=== PATIENT | female | born 1965 | race Caucasian/White ===

== ENCOUNTER 2020-01-10 04:14 | Emergency (ER) | payer OTHER ==
[2020-01-10] MEDS ORDERED: NA CHLORIDE 0.9% 1,000 ML ONE (04:50)
[2020-01-10 05:09] LABS: Absolute Lymphocytes (CBC) 1.9 K/uL (0.7-4.9); Basophils % 1.1 % (0-1.3); Hematocrit 47.7 % (36.0-45.0); Lymphocytes % 31.6 % (15.3-44.8); MPV 10.1 fL (7.6-11.3); RBC Red Blood Cell Count 5.05 M/uL (3.86-4.86)
[2020-01-10 05:10] LABS: Protime INR 1.07
[2020-01-10] MEDS ORDERED: LORAZEPAM 1 MG TABLET ONE (05:22)
[2020-01-10] MEDS ORDERED: lisinopriL 10 MG TAB ONE (05:23)
[2020-01-10 05:24] LABS: ALT/SGPT 27 U/L (12-78); AST/SGOT 13 U/L (15-37); Albumin 4.2 g/dL (3.4-5.0); Alkaline Phosphatase 71 U/L (45-117); BUN Blood Urea Nitrogen 11 mg/dL (7-18); Bicarbonate 24 mmol/L (21-32); Bilirubin Direct 0.1 mg/dL (0-0.2); Bilirubin Total 0.6 mg/dL (0.2-1.0); Glucose Level 115 mg/dL (74-106); Magnesium 2.2 mg/dL (1.8-2.4); Potassium 3.5 mmol/L (3.5-5.1); Protein, Total 7.8 g/dL (6.4-8.2); Sodium Level 140 mmol/L (136-145); Troponin (Emerg Dept Use Only) < 0.02 ng/mL (0.0-0.045)
--- NOTE | 2020-01-10 05:40 | EDPHYS ---
Physician Documentation [facility] Name: Adela Montenegro Age: 54 yrs Sex: Female : 1965 Arrival Date: 01/10/2020 Time: 04:15 Bed 17 Private MD: KARLA Physician Duncan Luis HPI: 01/09 04:42 This 54 yrs old Female presents to ER via Ambulatory with complaints of High geni Blood Pressure. 04:42 The patient has elevated blood pressure and discovered this at home. Onset: The geni symptoms/episode began/occurred today. Modifying factors: The symptoms are aggravated by activity, The symptoms are alleviated by remaining still. Associated signs and symptoms: The patient has no apparent associated signs or symptoms. Severity of symptoms: At its worst the blood pressure was mild, moderate, in the emergency department the blood pressure is unchanged. The patient has not experienced similar symptoms in the past. Historical: - Allergies: 06:08 No Known Allergies; sg - Home Meds: 04:27 carvedilol oral oral [Active]; sg 06:08 atorvastatin oral oral [Active]; Effexor Oral [Active]; sg - PMHx: 04:27 Hypertension; sg - PSHx: 04:27 Tonsillectomy; Left Knee; sg - Immunization history:: Adult Immunizations up to date. - Social history:: Smoking status: Patient denies any tobacco usage or history of. - Family history:: not pertinent. ROS: 04:42 Constitutional: Negative for fever, chills, and weight loss, Eyes: Negative for injury, geni pain, redness, and discharge, ENT: Negative for injury, pain, and discharge, Neck: Negative for injury, pain, and swelling, Cardiovascular: Negative for chest pain, palpitations, and edema, Respiratory: Negative for shortness of breath, cough, wheezing, and pleuritic chest pain, Abdomen/GI: Negative for abdominal pain, nausea, vomiting, diarrhea, and constipation, Back: Negative for injury and pain, : Negative for injury, bleeding, discharge, and swelling, MS/Extremity: Negative for injury and deformity, Skin: Negative for injury, rash, and discoloration, Neuro: Negative for headache, weakness, numbness, tingling, and seizure, Allergy/Immunology: Negative for hives, rash, and allergies, Endocrine: Negative for neck swelling, polydipsia, polyuria, polyphagia, and marked weight changes, Hematologic/Lymphatic: Negative for swollen nodes, abnormal bleeding, and unusual bruising. 04:42 Psych: Positive for anxiety. Exam: 04:42 Constitutional: This is a well developed, well nourished patient who is awake, alert, geni and in no acute distress. Head/Face: Normocephalic, atraumatic. Eyes: Pupils equal round and reactive to light, extra-ocular motions intact. Lids and lashes normal. Conjunctiva and sclera are non-icteric and not injected. Cornea within normal limits. Periorbital areas with no swelling, redness, or edema. ENT: Nares patent. No nasal discharge, no septal abnormalities noted. Tympanic membranes are normal and external auditory canals are clear. Oropharynx with no redness, swelling, or masses, exudates, or evidence of obstruction, uvula midline. Mucous membranes moist. Neck: Trachea midline, no thyromegaly or masses palpated, and no cervical lymphadenopathy. Supple, full range of motion without nuchal rigidity, or vertebral point tenderness. No Meningismus. Chest/axilla: Normal chest wall appearance and motion. Nontender with no deformity. No lesions are appreciated. Cardiovascular: Regular rate and rhythm with a normal S1 and S2. No gallops, murmurs, or rubs. Normal PMI, no JVD. No pulse deficits. Respiratory: Lungs have equal breath sounds bilaterally, clear to auscultation and percussion. No rales, rhonchi or wheezes noted. No increased work of breathing, no retractions or nasal flaring. Abdomen/GI: Soft, non-tender, with normal bowel sounds. No distension or tympany. No guarding or rebound. No evidence of tenderness throughout. Back: No spinal tenderness. No costovertebral tenderness. Full range of motion. Skin: Warm, dry with normal turgor. Normal color with no rashes, no lesions, and no evidence of cellulitis. MS/ Extremity: Pulses equal, no cyanosis. Neurovascular intact. Full, normal range of motion. Neuro: Awake and alert, GCS 15, oriented to person, place, time, and situation. Cranial nerves II-XII grossly intact. Motor strength 5/5 in all extremities. Sensory grossly intact. Cerebellar exam normal. Normal gait. Psych: Awake, alert, with orientation to person, place and time. Behavior, mood, and affect are within normal limits. 04:42 Musculoskeletal/extremity: Extremities: all appear grossly normal, with no appreciated pain with palpation, ROM: no acute changes, Circulation is intact in all extremities. Sensation intact. Compartment Syndrome exam of affected extremity: is normal. DVT Exam: No signs of deep vein thrombosis. no pain, no swelling, no tenderness, negative Homans' sign noted on exam, no appreciated bluish discoloration, no erythema, no increased warmth. 05:03 ECG was reviewed by the Attending Physician. [facility] Vital Signs: 04:15 BP 165 / 108; Pulse 58; Resp 16; Temp 97.0(TE); Pulse Ox 98% on R/A; Pain 0/10; jb4 04:28 Weight 65.77 kg; Height 5 ft. 7 in. (170.18 cm); sg 05:00 BP 167 / 107; Pulse 55; Resp 16; Pulse Ox 100% on R/A; jb4 06:01 BP 156 / 95; Pulse 78; Resp 20; Pulse Ox 96% on R/A; jb4 04:28 Body Mass Index 22.71 (65.77 kg, 170.18 cm) sg MDM: 04:27 Patient medically screened. [facility] 04:44 Differential diagnosis: hypertensive crisis, Malignant HTN. Data reviewed: vital signs, [facility] nurses notes, lab test result(s), EKG, radiologic studies, plain films. Data interpreted: pvc monitor: rate is 58 beats/min, rhythm is regular, Pulse oximetry: on. Test interpretation: by ED physician or midlevel provider: ECG, plain radiologic studies. Counseling: I had a detailed discussion with the patient and/or guardian regarding: the historical points, exam findings, and any diagnostic results supporting the discharge/admit diagnosis, the presence of at least one elevated blood pressure reading (>120/80) during this emergency department visit, lab results, radiology results. Medication response: ativan, lisinopril. 05:39 ED course: improved, follow up , return if worse. [facility] 01/09 04:28 Order name: Basic Metabolic Panel [facility] 01/09 04:28 Order name: CBC with Diff; Complete Time: 05:[address] [facility] 01/09 04:28 Order name: LFT's [facility] 01/09 04:28 Order name: Magnesium; Complete Time: 06:[address] [facility] 01/09 04:28 Order name: PT-INR; Complete Time: 05:[address] [facility] 01/09 04:28 Order name: Troponin (emerg Dept Use Only); Complete Time: 06:[address] [facility] 01/09 04:28 Order name: XRAY Chest (1 view) [facility] 01/09 04:29 Order name: Basic Metabolic Panel; Complete Time: 06:01 EDAK 01/09 04:29 Order name: Liver (Hepatic) Function; Complete Time: 06:01 EDMS 01/09 05:41 Order name: NT PRO-BNP; Complete Time: 06:01 EDMS 01/09 04:28 Order name: EKG; Complete Time: 04:[address] [facility] 01/09 04:28 Order name: Cardiac monitoring; Complete Time: 04:[address] [facility] 01/09 04:28 Order name: EKG - Nurse/Tech; Complete Time: 04:[address] [facility] 01/09 04:28 Order name: IV Saline Lock; Complete Time: 05:[address] [facility] 01/09 04:28 Order name: Labs collected and sent; Complete Time: 05:[address] [facility] 01/09 04:28 Order name: O2 Per Protocol; Complete Time: 05:[address] [facility] 01/09 04:28 Order name: O2 Sat Monitoring; Complete Time: 05:[address] [facility] EC:03 Rate is 61 beats/min. Rhythm is regular. QRS [place] is Normal. CA interval is normal. QRS geni interval is normal. QT interval is normal. No Q waves. T waves are Normal. No ST changes noted. Clinical impression: NSR w/ Non-specific ST/T Changes and No evidence of ischemia. Interpreted by me. Reviewed by me. Administered Medications: 05:00 Drug: NS 0.9% 1000 ml Route: IV; Rate: 75 ml/hr; Site: right antecubital; jb4 06:00 Follow up: Response: No adverse reaction; IV Status: Order to discontinue infusion; IV jb4 Intake: 75ml 05:17 Drug: Ativan 1 mg Route: PO; jb4 06:00 Follow up: Response: No adverse reaction; Marked relief of symptoms jb4 05:17 Drug: Lisinopril 10 mg Route: PO; jb4 06:11 Follow up: Response: No adverse reaction; Blood pressure is lowered jb4 Disposition: 01/10/20 05:40 Discharged to Home. Impression: Essential (primary) hypertension, Anxiety disorder, unspecified. - Condition is Stable. - Discharge Instructions: Hypertension, Hypertension, [id number], How to Take Your Blood Pressure, [id number], Aspirin and Your Heart, Generalized Anxiety Disorder, Managing Your Hypertension. - Prescriptions for Coreg 25 mg Oral tablet - take 1 tablet by ORAL route every 12 hours with food; 20 tablet. Xanax 0.5 mg Oral Tablet - take 1 tablet by ORAL route every 8 hours As needed; 20 tablet. Lisinopril 10 mg Oral Tablet - take 1 tablet by ORAL route once daily; 20 tablet. - Medication Reconciliation Form, Thank You Letter, Antibiotic Education, Prescription Opioid Use form. - Follow up: Private Physician; When: 2 - 3 days; Reason: Recheck today's complaints, Continuance of care, Re-evaluation by your physician. Follow up: Shade Murdock; When: 2 - 3 days; Reason: Recheck today's complaints, Re-evaluation by your physician. - Problem is new. - Symptoms have improved. Signatures: Dispatcher [employer] [facility] Adolfo Renner RN RN sg Anderson, Corey, MD MD cha Bryson, James, RN RN jb4 Corrections: (The following items were deleted from the chart) 05:40 05:35 PROBNP+C.LAB.BRZ ordered. [facility] 06:08 04:27 Allergies: No Known Allergies; [facility] 06:08 04:27 Home Meds: Lisinopril Oral; [facility] 06:14 04:28 Urine Dipstick-Ancillary ordered. geni higgins 06:15 05:40 01/10/2020 05:40 Discharged to Home. Impression: Essential (primary) jb4 hypertension; Anxiety disorder, unspecified. Condition is Stable. Discharge Instructions: Hypertension, Hypertension, [id number], How to Take Your Blood Pressure, [id number], Managing Your Hypertension, Generalized Anxiety Disorder. Prescriptions for Coreg 25 mg Oral tablet - take 1 tablet by ORAL route every 12 hours with food; 20 tablet, Xanax 0.5 mg Oral Tablet - take 1 tablet by ORAL route every 8 hours As needed; 20 tablet, Lisinopril 10 mg Oral Tablet - take 1 tablet by ORAL route once daily; 20 tablet. and Forms are Medication Reconciliation Form, Thank You Letter, Antibiotic Education, Prescription Opioid Use. Follow up: Private Physician; When: 2 - 3 days; Reason: Recheck today's complaints, Continuance of care, Re-evaluation by your physician. Follow up: hSade Murdock; When: 2 - 3 days; Reason: Recheck today's complaints, Re-evaluation by your physician. Problem is new. Symptoms have improved. geni
--- NOTE | 2020-01-10 05:40 | ER ---
Nurse's Notes [facility] Name: Adela Montenegro Age: 54 yrs Sex: Female : 1965 Arrival Date: 01/10/2020 Time: 04:15 Bed 17 Private MD: Diagnosis: Essential (primary) hypertension;Anxiety disorder, unspecified Presentation: 01/09 04:22 Chief complaint: Patient states: I have had some issues with my blood pressure being sg high, and having dizziness. I went to see my PCP , he prescribed a new antidepressant along with my blood pressure medications. I will not take the new medication again, it just did not make me feel well at all. Coronavirus screen: Client denies travel out of the [place] in the last 14 days. At this time, the client does not indicate any symptoms associated with coronavirus-19. Ebola Screen: Patient negative for fever greater than or equal to 101.5 degrees Fahrenheit, and additional compatible Ebola Virus Disease symptoms Patient denies exposure to infectious person. Patient denies travel to an Ebola-affected area in the 21 days before illness onset. No symptoms or risks identified at this time. Initial Sepsis Screen: Does the patient meet any 2 criteria? No. Patient's initial sepsis screen is negative. Does the patient have a suspected source of infection? No. Patient's initial sepsis screen is negative. Risk Assessment: Do you want to hurt yourself or someone else? Patient reports no desire to harm self or others. Onset of symptoms was January 10, 2020. Care prior to arrival: None. Transition of care: patient was not received from another setting of care. 04:22 Method Of Arrival: Ambulatory sg 04:22 Acuity: SHRADDHA 3 sg Historical: - Allergies: 06:08 No Known Allergies; sg - Home Meds: 04:27 carvedilol oral oral [Active]; sg 06:08 atorvastatin oral oral [Active]; Effexor Oral [Active]; sg - PMHx: 04:27 Hypertension; sg - PSHx: 04:27 Tonsillectomy; Left Knee; sg - Immunization history:: Adult Immunizations up to date. - Social history:: Smoking status: Patient denies any tobacco usage or history of. - Family history:: not pertinent. Screenin:15 Abuse screen: Denies threats or abuse. Nutritional screening: No deficits noted. jb4 Tuberculosis screening: No symptoms or risk factors identified. Fall Risk None identified. Assessment: 04:15 General: Appears in no apparent distress. uncomfortable, Behavior is calm, cooperative, jb4 appropriate for age. Pain: Denies pain. Neuro: Level of Consciousness is awake, alert, obeys commands, Oriented to person, place, time, situation. Cardiovascular: Patient's skin is warm and dry. Respiratory: Airway is patent Respiratory effort is even, unlabored, Respiratory pattern is regular, symmetrical. GI: No signs and/or symptoms were reported involving the gastrointestinal system. : No signs and/or symptoms were reported regarding the genitourinary system. EENT: No signs and/or symptoms were reported regarding the EENT system. Derm: Skin is intact, Skin is pink, warm \T\ dry. Musculoskeletal: Circulation, motion, and sensation intact. Range of motion:. 05:17 Reassessment: Patient appears in no apparent distress at this time. Patient and/or jb4 family updated on plan of care and expected duration. Pain level reassessed. Patient is alert, oriented x 3, equal unlabored respirations, skin warm/dry/pink. 05:58 Reassessment: Patient appears in no apparent distress at this time. Patient and/or jb4 family updated on plan of care and expected duration. Pain level reassessed. Patient is alert, oriented x 3, equal unlabored respirations, skin warm/dry/pink. D/c pending lab results. Patient states feeling better. 06:09 Reassessment: Patient and/or family updated on plan of care and expected duration. Pain jb4 level reassessed. Patient is alert, oriented x 3, equal unlabored respirations, skin warm/dry/pink. Pt verbalized understanding of d/c and follow up instructions. Denies questions or concerns. Ambulated out of ED with steady gait. Vital Signs: 04:15 BP 165 / 108; Pulse 58; Resp 16; Temp 97.0(TE); Pulse Ox 98% on R/A; Pain 0/10; jb4 04:28 Weight 65.77 kg; Height 5 ft. 7 in. (170.18 cm); sg 05:00 BP 167 / 107; Pulse 55; Resp 16; Pulse Ox 100% on R/A; jb4 06:01 BP 156 / 95; Pulse 78; Resp 20; Pulse Ox 96% on R/A; jb4 04:28 Body Mass Index 22.71 (65.77 kg, 170.18 cm) ED Course: 04:15 Patient arrived in ED. cl3 04:15 Patient has correct armband on for positive identification. Bed in low position. Call jb4 light in reach. Side rails up X 1. Pulse ox on. NIBP on. 04:20 Eduardo Cifuentes, RN is Primary Nurse. jb4 04:22 Arm band placed on. sg 04:26 Triage completed. 04:27 Duncan Luis MD is Attending Physician. geni 04:45 Initial lab(s) drawn, by nv, sent to lab. Inserted saline lock: 18 gauge in right jb4 antecubital area, using aseptic technique. Blood collected. 04:46 XRAY Chest (1 view) In Process Unspecified. EDMS 05:40 Shade Murdock MD is Referral Physician. geni 06:09 No provider procedures requiring assistance completed. IV discontinued, intact, jb4 bleeding controlled, No redness/swelling at site. Pressure dressing applied. Administered Medications: 05:00 Drug: NS 0.9% 1000 ml Route: IV; Rate: 75 ml/hr; Site: right antecubital; jb4 06:00 Follow up: Response: No adverse reaction; IV Status: Order to discontinue infusion; IV jb4 Intake: 75ml 05:17 Drug: Ativan 1 mg Route: PO; jb4 06:00 Follow up: Response: No adverse reaction; Marked relief of symptoms jb4 05:17 Drug: Lisinopril 10 mg Route: PO; jb4 06:11 Follow up: Response: No adverse reaction; Blood pressure is lowered jb4 Intake: 06:00 IV: 75ml; Total: 75ml. jb4 Outcome: 05:40 Discharge ordered by . geni 06:09 Discharged to home ambulatory. jb4 06:09 Condition: stable 06:09 Discharge instructions given to patient, Instructed on discharge instructions, follow up and referral plans. medication usage, Demonstrated understanding of instructions, follow-up care, medications, Prescriptions given X 3. 06:15 Patient left the ED. jb4 Signatures: Dispatcher [employer] [facility] Adolfo Renner RN RN sg Anderson, Corey, MD MD cha Bryson, James RN RN jb4 Hosea Taylor cl3 Corrections: (The following items were deleted from the chart) 04: Allergies: No Known Allergies; [facility] 04: Home Meds: Lisinopril Oral; jose luis amaya
[2020-01-10 05:54] LABS: NT PRO-BNP 70 pg/mL (<125)
--- NOTE | 2020-01-10 08:54 | RAD REPORT ---
EXAM DESCRIPTION: RAD - Chest Single View - 01/10/2020 4:46 am CLINICAL HISTORY: CHEST PAIN Chest pain. COMPARISON: No comparisons FINDINGS: Portable technique limits examination quality. The lungs are grossly clear. The heart is normal in size. No displaced fractures. IMPRESSION: No acute intrathoracic process suspected.
[2020-01-12 03:47] VITALS: TEMP 97
[2020-01-12 03:50] VITALS: BP 156/95; O2SAT 96
== END 2020-01-10 06:15 | disposition home or self-care (01) ==
LOC: ER 04:14
DX: I10 Essential (primary) hypertension (principal); F41.9 Anxiety disorder, unspecified
CPT/HCPCS: 93005; 85025; 80048; 36415; 83735; 85610; 80076; 84484; 83880; 71045; 96360; 99284; J7030